=== PATIENT | male | born 1985 | race Caucasian/White ===

== ENCOUNTER 2019-03-12 08:18 | Emergency (ER) | payer OTHER, BC ==
[~2019-03-12] VITALS: Ht 175.3 cm; Wt 63.5 kg
[~2019-03-12 08:18] MED LIST: ALEVE220 MG PO; CEPHALEXIN500 MG PO; PERCOCET 7.5-31 EACH PO; TRAMADOL HCL50 MG PO
== END 2019-03-12 09:12 | disposition home or self-care (01) ==
LOC: ED 08:18
PROC: 0XQMXZZ Repair Left Thumb, External Approach (ICD-10-PCS; principal; 2019-03-12)
DX: S61.012A Laceration without foreign body of left thumb without damage to nail, initial encounter (principal); Z79.899 Other long term (current) drug therapy; W26.0XXA Contact with knife, initial encounter
CPT/HCPCS: 12001; 90471; 90715; 99282-25

== ENCOUNTER 2020-05-05 12:39 | Emergency (ER) | payer SELFPAY ==
[~2020-05-05] VITALS: Ht 175.3 cm; Wt 63.5 kg
[2020-05-05] MEDS ORDERED: NORCO 5-325 TA1 EACH PO (14:26)
[2020-05-05] MEDS ORDERED: FLOMAX0.4 MG PO (14:26)
[2020-05-05] MEDS ORDERED: ZOFRAN4 MG SL (14:26)
== END 2020-05-05 15:14 | disposition home or self-care (01) ==
LOC: ED 12:39
DX: N13.2 Hydronephrosis with renal and ureteral calculous obstruction (principal); Z79.899 Other long term (current) drug therapy
CPT/HCPCS: 74176; 80053; 81001; 83690; 85025; 96361; 96374; 96375; 99284-25; J1885; J2405; J3010; J7030